=== PATIENT | female | born 1995 | race Caucasian/White ===

== ENCOUNTER 2017-05-24 13:56 | Emergency (ER) | payer MEDICAID ==
[~2017-05-24] VITALS: Ht 157.5 cm; Wt 78.6 kg
[2017-05-24 13:58] VITALS: BP 130/76; PULSE 104; RESP 16; TEMP 98.9; O2SAT 98
[2017-05-24 16:10] LABS: AUTOMATED NEUTROPHIL # 5.8 TH/MM3 (1.8-7.7); BASOPHIL % 0.1 % (0.0-2.0); EOSINOPHIL % 0.2 % (0.0-4.0); HEMATOCRIT 47.5 % (35.0-46.0); LYMPH % 11.7 % (9.0-44.0); LYMPHOCYTE # 0.8 TH/MM3 (1.0-4.8); MEAN CELL VOLUME 79.8 FL (80.0-100.0); MEAN CORPUSCULAR HGB CONC 33.8 % (32.0-36.0); MEAN PLATELET VOLUME 7.9 FL (7.0-11.0); MONO % 5.5 % (0.0-8.0); MONOCYTE # 0.4 TH/MM3 (0-0.9); NEUT % 82.5 % (16.0-70.0); PLATELET COUNT 259 TH/MM3 (150-450); RED BLOOD COUNT 5.95 MIL/MM3 (4.00-5.30); RED CELL DISTRIBUTION WIDTH 12.9 % (11.6-17.2)
[2017-05-24 16:12] LABS: BACTERIA, URINE RARE /hpf; BILIRUBIN, URINE NEG (NEG); BLOOD, URINE NEG (NEG); GLUCOSE,URINE NEG (NEG); KETONE, URINE 80 mg/dL (NEG); MUCUS URINE FEW /lpf (OCC); NITRITE,URINE NEG (NEG); PH, URINE 5.5 (5.0-8.5); SQUAMOUS EPITHELIAL CELL URINE 2 /hpf (0-5); URINE COLOR YELLOW (YELLW/STRAW); URINE LEUKOCYTE ESTERASE MOD (NEG)
[2017-05-24 16:36] LABS: ALBUMIN 4.4 GM/DL (3.4-5.0); ALT (GPT) 26 U/L (10-53); AST (GOT) 16 U/L (15-37); BICARBONATE 26.1 MEQ/L (21.0-32.0); BLOOD UREA NITROGEN 10 MG/DL (7-18); CALCIUM 9.2 MG/DL (8.5-10.1); CHLORIDE 103 MEQ/L (98-107); CREATININE 0.74 MG/DL (0.50-1.00); GLOMERULAR FILTRATION RATE 98 ML/MIN (>89); GLUCOSE,RANDOM 90 MG/DL (74-106); SODIUM (NA) 136 MEQ/L (136-145)
[2017-05-24 16:38] LABS: ALKALINE PHOSPHATASE 83 U/L (45-117); TOTAL BILIRUBIN ADULT 0.9 MG/DL (0.2-1.0); TOTAL PROTEIN 8.5 GM/DL (6.4-8.2)
--- NOTE | 2017-05-24 20:44 | PD ---
HPI Chief Complaint: GI Complaint Time Seen by Provider: 20:26 Travel History International Travel<30 days: No Contact w/Intl Traveler<30days: No Traveled to known affect area: No History of Present Illness HPI 21yo F with no significant PMH presents to the ED with multiple complaints. Pt has been having nonbloody vomiting, nonbloody diarrhea, bitemporal headache, nasal congestion for 2 days. Pt said she also had fever yesterday. Has some vaginal discharge for a few days that sounds funny. Pt also with lower abdominal pain for 2 days. Denies any chest pain, sob, focal weakness or numbness. PFSH Past Medical History Anemia: Yes Diminished Hearing: No Tetanus Vaccination: > 5 Years Influenza Vaccination: No ?: Unknown LMP: 05/03/2017 : 1 Para: 1 Past Surgical History Abdominal Surgery: Yes (Gastric sleeve 2012,Body lift 2014) Social History Alcohol Use: No Tobacco Use: No Substance Use: No Allergies-Medications (Allergen,Severity, Reaction): Coded Allergies: No Known Allergies (Unverified , 05/24/17) Reported Meds & Prescriptions Reported Meds & Active Scripts Active Tylenol (Acetaminophen) 325 Mg Tab 650 Mg PO Q6H PRN Review of Systems Except as stated in HPI: all other systems reviewed are Neg Physical Exam Narrative GENERAL: 21yo F in mild distress. SKIN: Focused skin assessment warm/dry. HEAD: Atraumatic. Normocephalic. EYES: Pupils equal and round at 3mm bilaterally. EOMI. ENT: No nasal bleeding or discharge. Mucous membranes pink and moist. NECK: No nuchal rigidity. CARDIOVASCULAR: Regular rate and rhythm. No murmur appreciated. RESPIRATORY: No accessory muscle use. Clear to auscultation. Breath sounds equal bilaterally. GASTROINTESTINAL: Abdomen soft, mild suprapubic ttp. No RLQ ttp. No rebound tenderness or guarding. PELVIC: +White vaginal discharge that looks physiologic. No CMT or adnexal tenderness bilaterally. MUSCULOSKELETAL: No obvious deformities. No clubbing. No cyanosis. No edema. NEUROLOGICAL: Awake and alert. No obvious cranial nerve deficits. Motor grossly within normal limits. Normal speech. PSYCHIATRIC: Appropriate mood and affect; insight and judgment normal. Data Data Last Documented VS Vital Signs Date Time Temp Pulse Resp B/P (MAP) Pulse Ox O2 Delivery O2 Flow Rate FiO2 05/24/17 23:18 20 05/24/17 23:08 72 115/65 (82) 99 Room Air 05/24/17 13:58 98.9 Orders Orders Complete Blood Count With Diff (05/24/17 14:38) Comprehensive Metabolic Panel (05/24/17 14:38) Urinalysis - C+S If Indicated (05/24/17 14:38) Ed Urine Pregnancytest Poc (05/24/17 14:38) Influenzae A/B Antigen (05/24/17 14:38) Ketorolac Inj (Toradol Inj) (05/24/17 20:45) Ondansetron Inj (Zofran Inj) (05/24/17 20:45) Sodium Chlor 0.9% 1000 Ml Inj (Ns 1000 M (05/24/17 20:45) Gc And Chlamydia Pcr (05/24/17 20:34) Wet Prep Profile (05/24/17 20:34) Metoclopramide Inj (Reglan Inj) (05/24/17 23:00) Ed Discharge Order (05/24/17 23:52) Labs Laboratory Tests Test 05/24/17 15:25 05/24/17 15:30 05/24/17 21:25 Urine Color YELLOW Urine Turbidity CLEAR Urine pH 5.5 Urine Specific [place] 1.032 Urine Protein TRACE mg/dL Urine Glucose (UA) NEG mg/dL Urine Ketones 80 mg/dL Urine Occult Blood NEG Urine Nitrite NEG Urine Bilirubin NEG Urine Urobilinogen 2.0 MG/DL Urine Leukocyte Esterase MOD Urine RBC 1 /hpf Urine WBC 3 /hpf Urine Squamous Epithelial Cells 2 /hpf Urine Bacteria RARE /hpf Urine Mucus FEW /lpf Microscopic Urinalysis Comment CULT NOT INDICATED White Blood Count 7.0 TH/MM3 Red Blood Count 5.95 MIL/MM3 Hemoglobin 16.0 GM/DL Hematocrit 47.5 % Mean Corpuscular Volume 79.8 FL Mean Corpuscular Hemoglobin 27.0 PG Mean Corpuscular Hemoglobin Concent 33.8 % Red Cell Distribution Width 12.9 % Platelet Count 259 TH/MM3 Mean Platelet Volume 7.9 FL Neutrophils (%) (Auto) 82.5 % Lymphocytes (%) (Auto) 11.7 % Monocytes (%) (Auto) 5.5 % Eosinophils (%) (Auto) 0.2 % Basophils (%) (Auto) 0.1 % Neutrophils # (Auto) 5.8 TH/MM3 Lymphocytes # (Auto) 0.8 TH/MM3 Monocytes # (Auto) 0.4 TH/MM3 Eosinophils # (Auto) 0.0 TH/MM3 Basophils # (Auto) 0.0 TH/MM3 CBC Comment DIFF FINAL Differential Comment Blood Urea Nitrogen 10 MG/DL Creatinine 0.74 MG/DL Random Glucose 90 MG/DL Total Protein 8.5 GM/DL Albumin 4.4 GM/DL Calcium Level 9.2 MG/DL Alkaline Phosphatase 83 U/L Aspartate Amino Transf (AST/SGOT) 16 U/L Alanine Aminotransferase (ALT/SGPT) 26 U/L Total Bilirubin 0.9 MG/DL Sodium Level 136 MEQ/L Potassium Level 3.7 MEQ/L Chloride Level 103 MEQ/L Carbon Dioxide Level 26.1 MEQ/L Anion Gap 7 MEQ/L Estimat Glomerular Filtration Rate 98 ML/MIN Clue Cells (Wet Prep) NONE SEEN Vaginal Trichomonas (Wet Prep) NONE SEEN Vaginal Yeast (Wet Prep) NONE SEEN Chlamydia trachomatis DNA (PCR) NOT DETECTED Neisseria gonorrhoeae DNA (PCR) NOT DETECTED MDM Medical Decision Making Medical Screen Exam Complete: Yes Emergency Medical Condition: Yes Differential Diagnosis Dehydration vs. viral syndrome vs. sinus headache vs. migraine headache vs. bacterial vaginosis Narrative Course 21yo F here with multiple complaints. Influenza negative. Labs reviewed, no leukocytosis. H/H is elevated consistent with dehydration. CMP unremarkable. UA showed moderate leukocyte. WBC 3. Culture not indicated. Wet prep negative. Pt given NS IVF, toradol and zofran. Pt reevaluated at bedside and said her headache has improved a lot and almost gone. I did offer lumbar puncture to r/o bacterial meningitis given pt had headache and fever. However she refused and I also have low suspicion given her other symptoms and that she is well appearing. Urine negative. Pt is still nauseous so will give reglan and reevaluate. Pt reevaluated at bedside and said headache and abdominal pain has completely resolved. Nausea is also resolved and pt is tolerating PO. Repeat HR 72bpm. Return precautions given. Diagnosis Primary Impression: Viral syndrome Patient Instructions: General Instructions Departure Forms: Tests/Procedures Additional Instructions: Please follow up with your primary care physician in 3-7 days. Return to the ED if symptoms worsen. Med/Other Pt SpecificInfo: Prescription(s) given Scripts Acetaminophen (Tylenol) 325 Mg Tab 650 MG PO Q6H Y for PAIN SCALE 1 TO 4, #20 TAB 0 Refills Prov: Amanda Rome DO 05/24/17 Disposition: 01 DISCHARGE HOME Condition: Stable Amanda Rome DO May 24, 2017 20:44
[2017-05-24] MEDS ORDERED: SODIUM CHLOR 0.9% 1000 ML INJ 1,000 ML IV ONE (20:45)
[2017-05-24] MEDS ORDERED: ONDANSETRON HCL 4 MG/2 ML VIAL IV PUSH ONE (20:45)
[2017-05-24] MEDS ORDERED: KETOROLAC TROMETHAMINE 30 MG/ML (IVP) VIAL IV PUSH ONE (20:45)
[2017-05-24] MEDS ORDERED: METOCLOPRAMIDE INJ 10 MG in SODIUM CHLORIDE 0.9% INJ 50 ML IV ONE (23:00)
[2017-05-24 23:08] VITALS: BP 115/65; PULSE 72; RESP 20; O2SAT 99
[2017-05-24 23:18] VITALS: RESP 20
[2017-05-24] MEDS ORDERED: TYLE325T PO (23:55)
== END 2017-05-25 00:15 | disposition home or self-care (01) ==
LOC: NEPD 13:56
DX: B34.9 Viral infection, unspecified (principal)
CPT/HCPCS: 80053; 81001; 84703; 85025; 87210; 87491; 87591; 87804; 96361; 96365; 96375; 99284; J1885; J2405; J2765; J7030